=== PATIENT | male | born 1955 | race Caucasian/White ===

== ENCOUNTER 2016-12-15 12:47 | Emergency (ER) | payer BC ==
[2016-12-15 16:06] LABS: Urine Bacteria 1+ (Absent); Urine Bilirubin Negative (Negative); Urine Glucose Negative (Negative); Urine Nitrite Negative (Negative)
[2016-12-15] MEDS ORDERED: Ketorolac INJ* 30 MG/ML 1 ML VIAL IV ONE (16:11)
[2016-12-15] MEDS ORDERED: Ondansetron INJ* 2 MG/ML VIAL IV ONE (16:11)
[2016-12-15] MEDS ORDERED: NS 0.9% 1000 ML* 1,000 ML IV ONE (16:11)
[2016-12-15 16:21] LABS: Hematocrit 39 % (42-52); Hemoglobin 12.3 g/dl (14.0-18.0); Mean Corpuscular HGB Conc 32 g/dl (31-36); Mean Corpuscular Hemoglobin 25 pg (27-31); Mean Corpuscular Volume 78 fL (80-94); Mean Platelet Volume 8 um3 (7.4-10.4); Red Blood Count 4.97 10^6/ul (4.0-5.4); Red Cell Distribution Width 16 % (10.5-15); White Blood Count 15.3 10^3/ul (3.5-10.8)
--- NOTE | 2016-12-15 16:34 | ED ---
Abdominal Pain/Male - HPI Summary HPI Summary: Patient presents with left sided flank pain since it woke him at 0330 this morning. He has a history of kidney stones and has cassidy blood in his urine today. He denies recent trauma, fever, or abdominal pain. No N/V/D. - History of Current Complaint Chief Complaint: EDFlankPain Stated Complaint: LOWER BACK PAIN/BLOOD IN URINE Time Seen by Provider: 12/15/16 15:10 Hx Obtained From: Patient, Family/As400 Programmer Analyst Onset/Duration: Sudden Onset Timing: Constant Severity Initially: Severe Severity Currently: Severe Pain Intensity: 6 Location: Flank Radiates: No Radiates to: Flank Character: Sharp Aggravating Factor(s): Nothing Alleviating Factor(s): Nothing Associated Signs And Symptoms: Positive: Back Pain, Urinary Symptoms, Nausea - Allergies/Home Medications Allergies/Adverse Reactions: Allergies Allergy/AdvReac Type Severity Reaction Status Date / Time Apremilast [From Otezla] Allergy Headache Verified 12/09/16 14:21 [place] Allergy Muscle Ache Verified 12/09/16 14:21 PMH/Surg Hx/FS Hx/Imm Hx Endocrine/Hematology History: Reports: Hx Diabetes - TYPE 2 Cardiovascular History: Reports: Hx Hypertension Denies: Hx Congestive Heart Failure, Hx Pacemaker/ICD, Other Cardiovascular Problems/Disorders GI History: Reports: Hx Hiatal Hernia Denies: Other GI Disorders History: Reports: Hx Kidney Stones - NOT CURRENTLY Comment Only: Hx Renal Disease - PT TAKES [employer]MAN Musculoskeletal History: Denies: Other Musculoskeletal History Sensory History: Reports: Hx Contacts or Glasses - GLASSES Denies: Hx Hearing Aid Opthamlomology History: Reports: Hx Contacts or Glasses - GLASSES Neurological History: Denies: Other Neuro Impairments/Disorders Psychiatric History: Denies: Hx Panic Disorder - Surgical History Surgery Procedure, Year, and Place: tonsillectomy at 8 years old. 2012, [facility], [facility]. [facility] REPAIRED Hx Anesthesia Reactions: No Infectious Disease History: No Infectious Disease History: Denies: History Other Infectious Disease, Traveled Outside the [place] in Last 30 Days - Family History Known Family History: Positive: None - Social History Occupation: Employed Full-time Lives: With Family Alcohol Use: None Substance Use Type: Reports: None Smoking Status (MU): Former Smoker Amount Used/How Often: 1/2 PACK A DAY Have You Smoked in the Last Year: No Review of Systems Negative: Fever, Chills Negative: Chest Pain Negative: Shortness Of Breath Positive: Nausea. Negative: Abdominal Pain, Vomiting Positive: flank pain, hematuria All Other Systems Reviewed And Are Negative: Yes Physical Exam Triage Information Reviewed: Yes Vital Signs On Initial Exam: Initial Vitals Temp Pulse Resp BP Pulse Ox 96.5 F 76 20 145/85 99 12/15/16 12:53 12/15/16 12:53 12/15/16 12:53 12/15/16 12:53 12/15/16 12:53 Vital Signs Reviewed: Yes Appearance: Positive: Well-Appearing, Pain Distress, Obese Skin: Positive: Warm, Skin Color Reflects Adequate Perfusion, Dry, Soft Head/Face: Positive: Normal Head/Face Inspection Eyes: Positive: EOMI, DU, Conjunctiva Clear ENT: Positive: Hearing grossly normal Respiratory/Lung Sounds: Positive: Breath Sounds Present Cardiovascular: Positive: RRR Abdomen Description: Positive: Nontender, Soft, CVA Tenderness (L). Negative: CVA Tenderness (R), Distended, Guarding Bowel Sounds: Positive: Present Musculoskeletal: Negative: Edema Left, Edema Right Neurological: Positive: Sensory/Motor Intact, Alert, Oriented to Person Place, Time, NV Bundle Intact Distally, Normal Gait Psychiatric: Positive: Affect/Mood Appropriate AVPU Assessment: Alert - [place] Coma Scale Coma Scale Total: 15 Diagnostics - Vital Signs Vital Signs Temp Pulse Resp BP Pulse Ox 12/15/16 14:54 97.2 F 80 16 132/74 99 12/15/16 12:54 97.0 F 75 16 145/85 99 12/15/16 12:53 96.5 F 76 20 145/85 99 - Laboratory Lab Results: Lab Results 12/15/16 12/15/16 Range/Units 15:20 15:40 WBC 15.3 H (3.5-10.8) 10^3/ul RBC 4.97 (4.0-5.4) 10^6/ul Hgb 12.3 L (14.0-18.0) g/dl Hct 39 L (42-52) % MCV 78 L (80-94) fL MCH 25 L (27-31) pg MCHC 32 (31-36) g/dl RDW 16 H (10.5-15) % Plt Count 331 (150-450) 10^3/ul MPV 8 (7.4-10.4) um3 Neut % (Auto) 84.5 H (38-83) % Lymph % (Auto) 7.1 L (25-47) % [place] % (Auto) 7.9 (1-9) % Eos % (Auto) 0.1 (0-6) % Baso % (Auto) 0.4 (0-2) % Absolute Neuts (auto) 12.9 H (1.5-7.7) 10^3/ul Absolute Lymphs (auto) 1.1 (1.0-4.8) 10^3/ul Absolute Monos (auto) 1.2 H (0-0.8) 10^3/ul Absolute Eos (auto) 0 (0-0.6) 10^3/ul Absolute Basos (auto) 0.1 (0-0.2) 10^3/ul Absolute Nucleated RBC 0.01 10^3/ul Nucleated RBC % 0.1 Urine Color Red A Urine Appearance Cloudy Urine pH 6.0 (5-9) Ur Specific [place] 1.032 H (1.010-1.030) Urine Protein 2+(100 mg/dl) H (Negative) Urine Ketones Trace H (Negative) Urine Blood 3+ H (Negative) Urine Nitrate Negative (Negative) Urine Bilirubin Negative (Negative) Urine Urobilinogen Negative (Negative) Ur Leukocyte Esterase Trace H (Negative) Urine WBC (Auto) 3+(>20/hpf) H (Absent) Urine RBC (Auto) 3+(>10/hpf) H (Absent) Amorphous Crystals Present H (Absent) Urine Bacteria 1+ H (Absent) Hyaline Casts Present H (Absent) Granular Casts Present H (Absent) Urine Glucose Negative (Negative) Result Diagrams: 12/15/16 15:40 12/15/16 15:40 Lab Statement: Any lab studies that have been ordered have been reviewed, and results considered in the medical decision making process. - CT No standard instances CT Interpretation: Positive (See Comments) CT Interpretation Completed By: Radiologist - mild left hydronephrosis with non- obstructing 2mm stone at the UVJ; right 7mm stone without hydronephrosis Re-Evaluation - Re-Evaluation First Eval Re-Evaluation Time: 17:20 Change: Improved Abdominal Pain Fem Course/Dx - Diagnoses Differential Diagnosis/HQI/PQRI: Appendicitis, Bowel Obstruction, Hepatitis, Pancreatitis, Renal Colic, Ureteral Stone, Urinary Tract Infection Provider Diagnoses: Calculus of left kidney - Provider Notifications Discussed Care Of Patient With: Dr. Augustine, ED attending. Discharge - Discharge Plan Condition: Stable Disposition: HOME Prescriptions: Hydrocodone-Acetaminophen [[place] 5-325 mg] 1 tab PO TID PRN #15 tab MDD 3 PRN Reason: Pain Ondansetron HCl [Zofran 4 MG TAB] 4 mg PO TID PRN #15 tab PRN Reason: Nausea Patient Education Materials: Renal Colic (ED) Referrals: Andrew Kwan MD [Primary Care Provider] - Additional Instructions: Please strain your urine and call Dr. Beasley's office in the morning to discuss today's visit. Use the pain medication as needed. Drink extra fluids. Return to the emergency department if symptoms worsen.
--- NOTE | 2016-12-15 16:40 | RAD ---
INDICATION: LEFT flank pain. Hematuria. History of nephrolithiasis. COMPARISON: June 07, 2012 CT TECHNIQUE: Multidetector CT images were obtained from the lung bases to the ischial tuberosities. Evaluation of the viscera is limited without IV contrast. Multiplanar reformation. REPORT: Clear visualized lung bases. Negative for cardiomegaly or pericardial effusion. Postsurgical change of hiatal hernia repair consistent with surgical history. Unremarkable liver. Negative for biliary dilatation. Multiple dependent stones in the gallbladder without additional CT abnormality of the gallbladder. Unremarkable pancreas and spleen. Negative for CT abnormality of the upper GI, small bowel, or retrocecal appendix. Mild to moderate colonic diverticulosis without findings of diverticulitis. Negative for ascites, free air, or significant hernias. Normal adrenal glands. 7 mm stone at the RIGHT renal pelvis without RIGHT hydronephrosis. Punctate 1 mm stone at the upper pole of the RIGHT kidney. Unremarkable RIGHT ureter. Mildly enlarged LEFT kidney with mild hydronephrosis and carried nephric and periureteral inflammatory stranding is traced to a 2 mm stone at the ureterovesicular junction. No conspicuous focal RIGHT or LEFT renal lesions. The urinary bladder is largely decompressed. Symmetric seminal vesicles. Negative for lymphadenopathy. Normal diameter abdominal aorta and iliac arteries with minimal atherosclerotic plaque. Physiologic distention of the IVC. Negative for suspicious osseous lesions. Polyarticular degenerative arthropathy. IMPRESSION: 1. Mild to moderate LEFT hydroureteronephrosis is traced to a 2 mm ureterovesicular junction stone. 2. Larger stone measuring up to 7 mm at the RIGHT renal pelvis without associated RIGHT hydronephrosis.
[2016-12-15 16:52] LABS: Albumin 3.6 g/dL (3.2-5.2); BUN/Creatinine Ratio 7.7 (8-20); C Reactive Protein 7.21 mg/L (< 5.00); Calcium 8.9 mg/dL (8.6-10.3); EGFR African American 58.9 (>60); EGFR Non-African American 45.8 (>60); Globulin 2.9 g/dL (2-4); Total Bilirubin 0.3 mg/dL (0.2-1.0); Total Protein 6.5 g/dL (6.4-8.9)
[2016-12-15 18:48] VITALS: BP 137/64
== END 2016-12-15 18:47 | disposition home or self-care (01) ==
LOC: ED 12:47
DX: N20.0 Calculus of kidney (principal); R10.84 Generalized abdominal pain; M54.9 Dorsalgia, unspecified; R11.0 Nausea; Z87.891 Personal history of nicotine dependence
CPT/HCPCS: 36415; 74176; 80053; 81003; 81015; 85025; 86140; 87086; 96374; 96375; 99282; J1885; J2405